=== PATIENT | female | born 1960 | race Caucasian/White ===

== ENCOUNTER 2016-10-18 13:16 | Emergency (ER) | payer OTHER ==
[2016-10-18 15:08] LABS: HEMOGLOBIN 15.1 gm/dl (12.3-15.3); RED BLOOD COUNT 4.91 M/UL (4.00-5.10); WHITE BLOOD COUNT 8.6 K/UL (4.5-11.0)
[2016-10-18 15:30] LABS: BUN/CREATININE RATIO 14 (0-10)
== END 2016-10-18 17:00 | disposition home or self-care (01) ==
LOC: ER1 13:16
PROVIDERS: Physician Assistant Medical
DX: H92.02 Otalgia, left ear (principal); R20.2 Paresthesia of skin; G40.909 Epilepsy, unspecified, not intractable, without status epilepticus; F17.210 Nicotine dependence, cigarettes, uncomplicated; Z88.0 Allergy status to penicillin; Z79.899 Other long term (current) drug therapy
CPT/HCPCS: 36415; 70450; 80053; 84484; 85025; 93005; 99284

== ENCOUNTER → 2016-10-31 | Outpatient (CLI) | payer OTHER | LOC: EMI 14:00 | DX: G40.309 Generalized idiopathic epilepsy and epileptic syndromes, not intractable, without status epilepticus (principal); R20.9 Unspecified disturbances of skin sensation | CPT/HCPCS: 70553; A9577; J7050 ==

== ENCOUNTER → 2021-12-07 | Outpatient (CLI) | payer OTHER | LOC: KOH-I 11-02 14:00 | DX: J44.9 Chronic obstructive pulmonary disease, unspecified (principal); F17.210 Nicotine dependence, cigarettes, uncomplicated; R91.1 Solitary pulmonary nodule | CPT/HCPCS: 71271 ==